=== PATIENT | male | born 1960 | race Caucasian/White ===

== ENCOUNTER 2018-07-14 09:14 | Outpatient (REF) | payer BC, SELFPAY ==
[2018-07-14 21:08] LABS: ALT 34 U/L (12-78); Anion Gap 9.2 mmol/L (3-11); BUN 20 mg/dL (7-18); CO2 28.8 mmol/L (21.0-32.0); CREATININE 1.07 mg/dL (0.70-1.30); Chloride 103 mmol/L (98-107); Cholesterol 196 mg/dL (50-200); Glucose 110 mg/dL (70-100); HDL Cholesterol 40 mg/dL (40-60); LDL CHOLESTEROL 123 mg/dL (<100); Potassium 3.5 mmol/L (3.5-5.1); Sodium 141 mmol/L (136-145); Triglyceride 122 mg/dL (30-150)
== END 2018-07-14 09:34 ==
LOC: NCHCN 09:14
PROVIDERS: PCP Family Medicine; Visit Provider Family Medicine
DX: E78.5 Hyperlipidemia, unspecified (principal); I10 Essential (primary) hypertension
CPT/HCPCS: 80048; 80061; 83721; 84460

== ENCOUNTER 2019-06-03 11:48 | Outpatient (REF) | payer BC, SELFPAY ==
[2019-06-07 09:39] LABS: PSA, Screening 0.9 ng/mL (0.0-3.5)
== END 2019-06-03 12:08 ==
LOC: NCHCN 11:48
PROVIDERS: PCP Family Medicine; Visit Provider Nurse Practitioner Family
DX: Z12.5 Encounter for screening for malignant neoplasm of prostate (principal); N41.0 Acute prostatitis
CPT/HCPCS: 84153; 87086

== ENCOUNTER 2019-07-12 07:44 | Outpatient (REF) | payer BC, SELFPAY ==
[2019-07-12 21:38] LABS: Anion Gap 10.7 mmol/L (3-11); BUN 23 mg/dL (7-18); CO2 30.3 mmol/L (21.0-32.0); CREATININE 1.09 mg/dL (0.70-1.30); Calcium 9.1 mg/dL (8.5-10.1); Calculated LDL 119 mg/dL (<100); Chloride 99 mmol/L (98-107); Cholesterol 196 mg/dL (<200); Glucose 101 mg/dL (74-106); HDL Cholesterol 42 mg/dL (40-60); Potassium 3.7 mmol/L (3.5-5.1); Sodium 140 mmol/L (136-145); Triglyceride 178 mg/dL (<150)
[2019-07-14 10:26] LABS: PSA, Screening 0.7 ng/mL (0.0-3.5)
== END 2019-07-12 08:04 ==
LOC: NCHCN 07:44
PROVIDERS: PCP Family Medicine; Visit Provider Family Medicine
DX: I10 Essential (primary) hypertension (principal); Z12.5 Encounter for screening for malignant neoplasm of prostate
CPT/HCPCS: 80048; 80061; 84153